=== PATIENT | female | born 1945 | race Caucasian/White ===

== ENCOUNTER 2024-03-16 06:00 | Emergency (ER) | payer MEDICARE, SELFPAY ==
[2024-03-16] VITALS (8 sets, daily range): BP systolic 52–191; BP diastolic 26–105; PULSE 50–148; RESP 8–20; TEMP 35.9–36.7; O2SAT 85–95; BMI 30.7
[2024-03-16] MEDS: 0.9% Normal Saline (1000mL) 1,000 ML 999 ML IV ×2 (06:00→06:30)
[2024-03-16] MEDS: Norepinephrine Bit/0.9% NaCl 8 MG/250 ML IV.SOLN 9.4 MG CONT INF (06:14)
[2024-03-16 06:31] LABS: Bedside Glucose 257 mg/dL (74-106)
--- NOTE | 2024-03-16 06:33 | ED.RN ---
[id number] AD[address] PL[address] NOREPINE[address]INE AT MAX RATE
--- NOTE | 2024-03-16 06:37 | RAD_ITS ---
INDICATION: s/p intubation EXAMINATION/TECHNIQUE: X-RAY - XR Chest 1 View AP portable. 7:04 AM COMPARISON: No relevant prior comparison study available FINDINGS: LINES/DEVICES: Tip of the endotracheal tube is 5 cm above the david. NG tube tip in the mid stomach. Overlying defibrillator pads monitoring leads. LUNGS: Right upper lobe atelectasis. Soft tissue fullness in the right hilum. Small right pleural effusion.. No pneumothorax. MEDIASTINUM: Unremarkable. CARDIAC SILHOUETTE: Not enlarged. BONES AND SOFT TISSUES: No acute abnormalities. RAD/Chest 1 View (Portable) IMPRESSION: Satisfactory ET tube position. Right upper lobe atelectasis with suspected mass in the right hilar region. Small right pleural effusion. CT chest recommended for further evaluation. Electronically Signed: Anjelica Stone MD at 8:08 EST ,
[2024-03-16 06:57] LABS: Absolute Lymphocyte Count 7.79 X10^3/uL (0.83-4.51); Basophil# 0.16 X10^3/uL; Basophil% 0.9 % (0-1); Eosinophil# 0.14 X10^3/uL; Eosinophils% 0.8 % (0-5); Hematocrit 35.8 % (37-47); Lymphocyte # 7.79 X10^3/ul (0.83-4.51); Lymphocyte % 44.3 % (19-41); Mean Corp Hgb Conc 30.7 g/dL (32-36); Mean Corpuscular Hgb 29.8 pg (27.0-32.0); Mean Platelet Vol. 12.3 fl (6.2-12.0); Monocyte# 1.19 X10^3/uL; Monocyte% 6.8 % (0-10); NRBC Flagged by Analyzer 0.4 % (0-5); Neutrophil # 7.95 X10^3/uL (2.7-7.7); Neutrophil % 45.2 % (47-70); POSITIVE DIFFERENTIAL YES; POSITIVE MORPHOLOGY YES; Platelet Count 176 K/mm3 (150-450); RBC Distribution Width CV 13.8 % (11.6-14.6); RBC Distribution Width SD 48.2 fl (35.1-43.9); Red Blood Count 3.69 M/mm3 (4.2-5.4); White Blood Count 17.6 K/mm3 (4.4-11.0)
--- NOTE | 2024-03-16 06:57 | ED.RN ---
Phone call placed to Giancarlo, phone number [phone], situation explained. When asked what his/her wishes would be, if he thinks she would want CPR if her heart stops again or if she would want to be made comfortable, he states he thinks she would want to be made comfortable because that is what they had previously discussed.
[2024-03-16 07:02] LABS: Differential Indicated SCAN CRITERIA MET
[2024-03-16 07:09] LABS: Anion Gap 14 (5-15); BUN 12 mg/dL (7-18); BUN/Creat Ratio 11.2 RATIO (10-20); Calcium,Total 9.4 mg/dL (8.5-10.1); Chloride 102 mmol/L (98-107); Creatinine, Serum 1.07 mg/dL (0.55-1.02); EST Glomerular Filtration Rate 53 mL/min (>60); Est Glom Filt Rate - Afr Amer 64 mL/min (>60); Estimated Creatinine Clearance 51.26 ml/min; Glucose 325 mg/dL (74-106); Potassium 3.4 mmol/L (3.5-5.1); Sodium Level 138 mmol/L (136-145)
[2024-03-16 07:33] LABS: Allen Test Positive; Base Excess -9 mmol/L (-2 to +2); Bicarbonate 21.2 mmol/L (22-26); Blood Gas Specimen Type ART; Mode AC; O2 Delivery Device Adult Vent; PEEP 10; PO2 213 mmHG (75-100); RR 12; SITE R Radial; SO2 99 % (95-99); Total Carbon Dioxide 23 mmol/L; pCO2 68.5 mmHg (35-45)
--- NOTE | 2024-03-16 07:33 | EX.ED.DYSGE1 ---
HPI History of Present Illness Chief Complaint: CPR Informant: EMS Narrative Narrative: Patient is a 78-year-old female who reportedly called EMS secondary to a nosebleed. According to EMS the patient does not go to the doctor and has not been evaluated in multiple years. They state when they arrived she was sitting outside waiting for them to pull up and she had bleeding from her nostrils. EMS states that they put the patient in the backseat and began taking her vitals and they noticed she was extremely hypertensive at approximately 220/100. Her pulse ox was 84% on room air as well. They told the patient they should take her to the nearest hospital based on her abnormal vitals and hypoxia. Reported the patient refused to go to the nearest hospital and requested to be taken to [place]. EMS states that patient was awake and alert but roughly 5 minutes before arrival spontaneously coded. EMS states that she was asystolic without a palpable pulse and started CPR shortly after the arrest. EMS reports that time from arrest to arrival at the ER is approximately 5 minutes PFSH PFSH Allergy/AdvReac Type Severity Reaction Status Date / Time No Known Allergies Allergy Verified 03/16/24 06:02 Social History Smoking Status: Unknown if ever smoked ROS ROS ED Review of Systems ROS Unobtainable: other Details: Unable to obtain secondary to patient's critical condition EXAM Physical Exam Const Vital Signs: 03/16/24 06:01 03/16/24 06:01 03/16/24 06:17 Temperature 96.6 F L Temperature [5] Temperature Source Temporal Pulse Rate Pulse Rate [1] Pulse Rate [4] 106 H Pulse Rate [5] 103 H Respiratory Rate Respiratory Rate [5] 20 H Respiratory Depth Normal Respiratory Pattern Normal Blood Pressure Blood Pressure [1] Blood Pressure Mean Pulse Ox Oxygen Delivery Method Ambu-Bag Fraction of Inspired Oxygen (FIO2) 03/16/24 06:20 03/16/24 06:21 03/16/24 06:37 Temperature Temperature [5] 98.1 F Temperature Source Pulse Rate 56 L 148 H Pulse Rate [1] 50 L Pulse Rate [4] 106 H Pulse Rate [5] 141 H Respiratory Rate 20 H Respiratory Rate [5] 20 H Respiratory Depth Respiratory Pattern Blood Pressure 114/95 H Blood Pressure [1] 52/26 L Blood Pressure Mean 101 Pulse Ox Oxygen Delivery Method Ambu-Bag Fraction of Inspired Oxygen (FIO2) 03/16/24 06:53 03/16/24 07:01 03/16/24 07:30 Temperature 97.9 F Temperature [5] Temperature Source Core Pulse Rate 108 H 117 H 111 H Pulse Rate [1] Pulse Rate [4] Pulse Rate [5] Respiratory Rate 12 15 20 H Respiratory Rate [5] Respiratory Depth Respiratory Pattern Normal Blood Pressure 118/72 191/105 H Blood Pressure [1] Blood Pressure Mean 87 133 Pulse Ox 85 86 95 Oxygen Delivery Method Mechanical Ventilator Mechanical Ventilator Fraction of Inspired Oxygen (FIO2) 100 100 03/16/24 08:00 Temperature Temperature [5] Temperature Source Pulse Rate 88 Pulse Rate [1] Pulse Rate [4] Pulse Rate [5] Respiratory Rate 8 L Respiratory Rate [5] Respiratory Depth Respiratory Pattern Blood Pressure 146/84 H Blood Pressure [1] Blood Pressure Mean 104 Pulse Ox 95 Oxygen Delivery Method Mechanical Ventilator Fraction of Inspired Oxygen (FIO2) Positive obese General Appearance ED: pallor Nutritional Appearance: obese HEENT HEENT Narrative: Patient has a large amount of of dark red nonpulsatile blood from bilateral nostrils with clot formation as well as dark red blood in the posterior pharynx Eyes Eyes Narrative: Pupils are fixed and dilated No corneal reflex noted Neck Neck Narrative: Large goiter/mass in the right anterior lateral neck Chest Wall Chest Narrative: No bony deformity or crepitance noted Resp Resp Narrative: Patient has no spontaneous respirations Upon intubation breath sounds are severely diminished on the right but sound clear on the left Cardio Rate: other Other Details: No spontaneous heartbeat auscultated No central or peripheral pulses palpated GI non-distended and no masses GI Narrative: No fluid wave or pulsatile mass Extremity Extremity Narrative: No bony deformity or joint effusion or asymmetric edema noted Neuro Neuro Narrative: GCS of 3 Patient exhibits no reflexive or purposeful movement Psych Psych Narrative: Patient is unresponsive Skin Skin Narrative: Skin is pale with delayed capillary refill General Skin Exam: pallor MDM MDM MDM Narrative Medical decision making narrative: EMS reported patient met them awake and alert walking to the squad but had a significant nosebleed and upon initial evaluation was hypertensive with hypoxia. She had a spontaneous cardiopulmonary arrest prior to arrival. The patient was intubated upon arrival secondary to a GCS of 3 without protection of her airway as documented below. CPR was conducted per ACLS protocol. The patient was able to achieve return of spontaneous circulation. However without vasopressor medication/epinephrine the patient coded once again. The patient was started on a norepinephrine drip and did achieve return of spontaneous circulation once again. The total amount of downtime is approximately 30 to 40 minutes. The patient does not have any sign of neurologic activity as there is no corneal reflex breathing over top the vent or response to painful stimuli. The arrived to the ER and reports that the patient has not seen a doctor since 1967 and did not want any extraordinary interventions performed. Therefore in complying with the patient and family wishes patient was removed from the vent and norepinephrine was stopped. She was given morphine and Ativan to help with any potential anxiety and pain related to the removal of care. After approximately 20 minutes of removal of care the patient was pronounced at 8:36 AM Patient was intubated using the glide scope. Based on her GCS of 3 and unresponsive status there was no need for sedation. The cords were visualized and a 7.5 ET tube was passed and 1 attempt. Confirmation was by color change capnography and fogging within the tube and bilateral breath sounds. History & Record Review Discussion w/independent historian: EMS personnel and Significant other Lab Data Attestation: I reviewed the patient's lab results. Labs: Laboratory Results - last 24 hr 03/16/24 03/16/24 06:03 06:47 WBC 17.6 H RBC 3.69 L Hgb 11.0 L Hct 35.8 L MCV 97.0 MCH 29.8 MCHC 30.7 L RDW Std Deviation 48.2 H RDW Coeff of Aliyah 13.8 Plt Count 176 MPV 12.3 H Immature Gran % (Auto) 2.000 H Neut % (Auto) 45.2 L Lymph % (Auto) 44.3 H [place] % (Auto) 6.8 Eos % (Auto) 0.8 Baso % (Auto) 0.9 Absolute Neuts (auto) 8.0 H Absolute Lymphs (auto) 7.79 H Nucleated RBC % 0.4 Differential Comment SCANNED Sodium 138 Potassium 3.4 L Chloride 102 Carbon Dioxide 22.0 Anion Gap 14 BUN 12 Creatinine 1.07 H Estim Creat Clear Calc 51.26 Est GFR (MDRD) Af Amer 64 Est GFR (MDRD) Non-Af 53 L BUN/Creatinine Ratio 11.2 Glucose 325 H Calcium 9.4 POC Glucose 257 H ABG Data ABG results: ABG 03/16/24 07:27 Specimen Type ART Sample Site R Radial pH 7.10 L* Bicarbonate Actual 21.2 L Total CO2 23 Base Excess -9 L O2 Saturation 99 O2 % 100.0 ABG pCO2 68.5 H* ABG pO2 213 H Kostas Test Positive Respiration Rate 12 O2 Delivery Device Adult Vent Vent Mode AC Tidal Volume 450.0 POC PEEP 10 Crit Call To/Read Back Yes Blood Gas Notified Whom Dr. Hahn Blood Gas Notified Time 07:30:56 Radiography Diagnostic Testing: Clinical Impression(s) from Imaging Studies Chest X-Ray 03/16/24 06:37 IMPRESSION: Satisfactory ET tube position. Right upper lobe atelectasis with suspected mass in the right hilar region. Small right pleural effusion. CT chest recommended for further evaluation. Electronically Signed: Anjelica Stone MD at 8:08 EST , Soft Tissue Neck X-Ray 03/16/24 07:35 IMPRESSION: Large right perihilar mass extending superiorly into the right neck. Recommend CT neck and chest with contrast. Electronically Signed: Efrain Best MD at 8:15 EST , Chest x-ray as interpreted by the emergency medicine reveals ET tube to be in satisfactory position as well as OG tube in proper place and atelectasis versus opacification of the right lung field Soft tissue neck x-ray as interpreted by the emergency medicine reveals a right sided neck mass without free air Critical Care Time Critical Care Time: Yes Critical care time (excluding procedures): Discussing w/Patient &/or Family/Carpenter Helper, Performing Direct Patient Care at Bedside and - (Please note critical care time of 43 minutes) Discharge Plan Triage Chief Complaint: CPR ED Provider: Vladimir Hahn Dx/Rx/DC Orders Clinical Impression: Cardiopulmonary arrest, Atrial fibrillation with RVR, Acute anterior epistaxis Primary Care Provider: Care Physician,No Primary Referrals: Care Physician,No Primary [Primary Care Provider] - Print Language: Romansh Disposition Disposition:
--- NOTE | 2024-03-16 07:35 | RAD_ITS ---
INDICATION: mass EXAMINATION/TECHNIQUE: X-RAY - XR Neck Soft Tissue COMPARISON: None. FINDINGS: SOFT TISSUES: Large right perihilar mass extending superiorly into the right neck. No radiopaque foreign body. PROXIMAL AIRWAY: Grossly patent. BONES: Moderate multilevel degenerative disc disease and spondylosis. RAD/Neck for Soft Tissue IMPRESSION: Large right perihilar mass extending superiorly into the right neck. Recommend CT neck and chest with contrast. Electronically Signed: Efrain Best MD at 8:15 EST ,
--- NOTE | 2024-03-16 07:55 | ED.RN ---
Per Dr. Hahn wants to withdraw care and stop all measures. Norepinephrine stopped. [facility] updated and requesting not to extubated until called back by them. Dr. Hahn updated.
[2024-03-16 08:04] LABS: Differential Comment SCANNED
--- NOTE | 2024-03-16 08:05 | ED.RN ---
dr. angel speaks with related to pt care. states to stop care. at this point
[2024-03-16] MEDS: LORazepam 2 MG/ML Syringe IV (08:11)
[2024-03-16] MEDS: morphine 8 MG/ML Syringe IV (08:11)
--- NOTE | 2024-03-16 08:15 | ED.RN ---
dr. stanley farmer pt.
--- NOTE | 2024-03-16 08:24 | CPS ---
pt was terminally extubated to Room air per Dr Hahn.
--- NOTE | 2024-03-16 08:48 | ED.RN ---
0836 AT BEDSIDE. NO PALPABLE PULSE FELT. PT TIME OF CALLED AT 0836.
--- NOTE | 2024-03-16 09:51 | ED.RN ---
[facility] CAME AND PICKED PT UP. [facility]ED [facility] AWARE THAT TO SIGN CERTIFICATE PER LINING PRINTER REQUEST PT HAS NOT SEEN A FAMILY DOCTOR IN DECADES.
== END 2024-03-16 09:53 ==
PROVIDERS: Emergency Provider Emergency Medicine; Visit Provider Emergency Medicine
DX: I46.9 Cardiac arrest, cause unspecified (principal); I48.91 Unspecified atrial fibrillation; R04.0 Epistaxis; J90 Pleural effusion, not elsewhere classified; J98.11 Atelectasis; E66.9 Obesity, unspecified
CPT/HCPCS: 31500; 36600; 51702; 70360; 71045; 80048; 82803; 82962; 85025; 92950; 93005; 94002; 99285; A4216